=== PATIENT | male | born 1945 ===

== ENCOUNTER 2019-06-19 04:51 | Inpatient (IN) ==
[2019-06-19] MEDS ORDERED: SODIUM CHLORIDE 0.9% 1,000 ML IV PRN (06:15)
[2019-06-19] MEDS ORDERED: ALBUTEROL 2.5 MG/3 ML NEB RESP TX PRN (06:16)
[2019-06-19] MEDS ORDERED: ONDANSETRON 4 MG/2 ML VIAL IV PRN (06:16)
[2019-06-19] MEDS ORDERED: ACETAMINOPHEN 325 MG TABLET PO PRN (06:16)
[2019-06-19 06:53] LABS: INR 1.1; PT Patient Result 12.1 SECS (9.6-12.2); Partial Thromboplastin Time 28.4 SECS (20.8-36.0)
[2019-06-19] MEDS ORDERED: hydrALAZINE 20 MG/1 ML VIAL IV PRN (07:04)
[2019-06-19 07:08] LABS: Eosinophils # 0.2 10*3/uL (0.0-0.87); Eosinophils % 5.3 % (0.00-10.9); Immature Granulocytes % 0.6 %; Immature Granulocytes Absolute 0.02 #; Lymphocytes # 1.5 10*3/uL (1.4-4.0); Lymphocytes % 47.2 % (21.2-54.2); Mean Corpuscular HGB Conc 35.7 GM/DL (32-36); Mean Corpuscular Volume 125.2 FL (87-102); Monocytes % 2.5 % (1.7-12.7); NRBC # 0.02 10*3/uL; Neutrophils % 44.4 % (38.7-73.9); Platelet Count 49 T/CUMM (130-400); Red Blood Count 1.03 MC/CUMM (3.8-5.5); Red Cell Distribution Width 14.3 % (9.3-17.3); White Blood Count 3.2 T/CUMM (4-12)
[2019-06-19 07:09] LABS: Hemoglobin 4.6 GM/DL (14.0-18.0)
[2019-06-19 07:10] LABS: Hematocrit 12.9 VOL% (42.0-52.0)
[2019-06-19 07:12] LABS: Albumin 2.8 G/DL (3.4-5.0); Total Protein 6.3 G/DL (6.4-8.3)
[2019-06-19 07:13] LABS: % Iron Saturation 97.8 % (18-50); Ferritin 371.7 ng/ml (26-388)
[2019-06-19 07:25] LABS: Eosinophils 7 % (0-10); Lymphocytes 41 % (20-55); Platelet Estimate Decreased; Segmented Neutrophils 52 % (50-85); Total Cells Counted 100
[2019-06-19 07:26] LABS: Anisocytosis 2+; Macrocytosis 2+; Poikilocytosis Slight
[2019-06-19 07:27] LABS: Atypical Lymphocytes Few; Hypersegmented Neutrophil Few; Tear Drop Cells Few
[2019-06-19 07:46] LABS: Sedimentation Rate-Westergren 149 MM/HR (0-20)
[2019-06-19 08:15] LABS: Folate 16.8 NG/ML (5.4-24.0); Vitamin B12 56 PG/ML (211-911)
[2019-06-19] MEDS: CYANOCOBALAMIN 1000 MCG/1 ML VIAL IM SCH (09:01)
[2019-06-19 09:25] LABS: Hemoglobin A1 (Alkaline) 96.5 % (96.5-98.5); Hemoglobin A2 (Alkaline) 3.5 % (1.5-3.5)
[2019-06-19] MEDS ORDERED: TUBERCULIN SKIN TEST 0.1 ML SYRINGE INTRADERM ONE ×2 (11:53→17:30)
[2019-06-19] MEDS ORDERED: CYANOCOBALAMIN 1000 MCG/1 ML VIAL IM ONE (18:00)
[2019-06-19 20:04] LABS: Hematocrit 25.3 VOL% (42.0-52.0)
[2019-06-19 20:09] LABS: Hemoglobin 8.8 GM/DL (14.0-18.0)
[2019-06-19] MEDS: amLODIPine 5 MG TABLET PO SCH (20:46)
[2019-06-20 05:48] LABS: Calcium 7.7 MG/DL (8.5-10.1); Osmolality,Calculated 294.6 MOS/KG (273-304)
[2019-06-20 06:00] LABS: Eosinophils # 0.2 10*3/uL (0.0-0.87); Eosinophils % 4.4 % (0.00-10.9); Hematocrit 26.1 VOL% (42.0-52.0); Hemoglobin 9.2 GM/DL (14.0-18.0); Immature Granulocytes % 0.8 %; Immature Granulocytes Absolute 0.03 #; Lymphocytes # 1.9 10*3/uL (1.4-4.0); Lymphocytes % 49.6 % (21.2-54.2); Mean Corpuscular HGB Conc 35.2 GM/DL (32-36); Mean Corpuscular Volume 97.8 FL (87-102); Mean Platelet Volume 11.1 FL (9.6-12.0); Monocytes % 3.6 % (1.7-12.7); Neutrophils % 41.6 % (38.7-73.9); Platelet Count 40 T/CUMM (130-400); Red Blood Count 2.67 MC/CUMM (3.8-5.5); Red Cell Distribution Width 24.9 % (9.3-17.3); White Blood Count 3.9 T/CUMM (4-12)
[2019-06-20 06:01] LABS: Ovalocytes Slight; Total Protein 5.9 G/DL (6.4-8.3)
[2019-06-20 06:02] LABS: Hypochromasia 1+; Platelet Estimate Decreased
[2019-06-20 07:59] LABS: Total Protein (Chem) 5.9 G/DL (6.4-8.3)
[2019-06-20] MEDS: CYANOCOBALAMIN 1000 MCG/1 ML VIAL IM SCH (09:04)
[2019-06-20] MEDS: amLODIPine 5 MG TABLET PO SCH ×2 (09:04→20:17)
[2019-06-20] MEDS: DOCUSATE SODIUM 100 MG CAPSULE PO PRN (09:04)
[2019-06-20] MEDS: FOLIC ACID 1 MG TABLET PO SCH (09:04)
[2019-06-20 09:18] LABS: Albumin (SPE) 3.5 G/DL (3.2-5.3); Albumin (SPE) Rel % 59.7 %; Alpha 1 (SPE) 0.2 G/DL (0.1-0.4); Alpha 1 (SPE) Rel % 2.7 %; Alpha 2 (SPE) 0.4 G/DL (0.4-1.0); Alpha 2 (SPE) Rel % 6.6 %; Beta (SPE) 0.4 G/DL (0.5-1.1); Gamma (SPE) 1.4 G/DL (0.7-1.7)
[2019-06-20 10:08] LABS: Immuno Free Light Chain Kappa 10.59 MG/DL (0.33-1.94); Immuno Free Light Chain Lambda 8.28 MG/DL (0.57-2.63); Immuno Free Light Chain Ratio 1.28 MG/DL (0.26-1.65)
[2019-06-21 05:17] LABS: Basophils % 0.2 % (0.0-0.8); Eosinophils # 0.2 10*3/uL (0.0-0.87); Eosinophils % 1.8 % (0.00-10.9); Hematocrit 30.9 VOL% (42.0-52.0); Hemoglobin 10.7 GM/DL (14.0-18.0); Immature Granulocytes % 1.7 %; Immature Granulocytes Absolute 0.14 #; Lymphocytes # 3.4 10*3/uL (1.4-4.0); Lymphocytes % 40.6 % (21.2-54.2); Mean Corpuscular HGB Conc 34.6 GM/DL (32-36); Mean Corpuscular Volume 100.3 FL (87-102); Mean Platelet Volume 13.4 FL (9.6-12.0); Monocytes % 2.9 % (1.7-12.7); NRBC # 0.02 10*3/uL; Neutrophils % 52.8 % (38.7-73.9); Red Blood Count 3.08 MC/CUMM (3.8-5.5); Red Cell Distribution Width 24.2 % (9.3-17.3); White Blood Count 8.3 T/CUMM (4-12)
[2019-06-21 05:40] LABS: Platelet Count 38 T/CUMM (130-400)
[2019-06-21 05:47] LABS: Calcium 7.9 MG/DL (8.5-10.1); Osmolality,Calculated 286.1 MOS/KG (273-304)
[2019-06-21 06:12] LABS: Anisocytosis 1+; Macrocytosis 1+; Ovalocytes 1+; Platelet Estimate Decreased
[2019-06-21] MEDS ORDERED: FUROSEMIDE 100 MG/10 ML VIAL ONE (07:46)
[2019-06-21] MEDS ORDERED: PROPOFOL 1,000 MG/100 ML BOTTLE IV ONE (08:02)
[2019-06-21] MEDS: PROPOFOL 1,000 MG/100 ML BOTTLE IV SCH (08:05)
[2019-06-21] MEDS ORDERED: ETOMIDATE 40 MG/20 ML VIAL IV ONE (08:20)
[2019-06-21] MEDS ORDERED: SUCCINYLCHOLINE 200 MG/10 ML VIAL ONE (08:20)
[2019-06-21 08:53] LABS: Calcium 7.3 MG/DL (8.5-10.1); Osmolality,Calculated 291.8 MOS/KG (273-304)
[2019-06-21 08:57] LABS: ABG Base Excess -2.5 MMOL/L (-2.5-2.5); ABG HCO3 22.3 MMOL/L (20-26); ABG Oxygen Saturation 99.5 % (95-100); ABG PCO2 42.1 MM HG (35-48); ABG PH 7.346 (7.35-7.45); Allen Test Positive; Pt O2 Delivery Device Ventilator
[2019-06-21] MEDS: FOLIC ACID 1 MG TABLET PO SCH (11:35)
[2019-06-21] MEDS: amLODIPine 5 MG TABLET PO SCH ×2 (11:35→20:59)
[2019-06-21] MEDS: CYANOCOBALAMIN 1000 MCG/1 ML VIAL IM SCH (11:36)
[2019-06-21] MEDS: AMPICILLIN/SULBACTAM 3,000 MG in SODIUM CHLORIDE 0.9% 100 ML IV SCH ×3 (12:00→22:03)
[2019-06-22] MEDS: AMPICILLIN/SULBACTAM 3,000 MG in SODIUM CHLORIDE 0.9% 100 ML IV SCH ×4 (03:22→21:06)
[2019-06-22 04:36] LABS: ABG Base Excess 0.6 MMOL/L (-2.5-2.5); ABG Oxygen Saturation 98.8 % (95-100); ABG PCO2 34.1 MM HG (35-48); ABG PH 7.456 (7.35-7.45); ABG TCO2 21.3 MMOL/L (23-27); Allen Test Positive; Pt O2 Delivery Device Ventilator
[2019-06-22 06:19] LABS: Basophils % 0.4 % (0.0-0.8); Hematocrit 30.8 VOL% (42.0-52.0); Hemoglobin 10.2 GM/DL (14.0-18.0); Immature Granulocytes % 1.9 %; Immature Granulocytes Absolute 0.15 #; Lymphocytes # 0.8 10*3/uL (1.4-4.0); Lymphocytes % 10.3 % (21.2-54.2); Mean Corpuscular HGB Conc 33.1 GM/DL (32-36); Mean Corpuscular Volume 105.1 FL (87-102); Mean Platelet Volume 12.8 FL (9.6-12.0); Monocytes % 10.4 % (1.7-12.7); NRBC # 0.02 10*3/uL; Red Blood Count 2.93 MC/CUMM (3.8-5.5); Red Cell Distribution Width 24.4 % (9.3-17.3); White Blood Count 7.9 T/CUMM (4-12)
[2019-06-22 06:25] LABS: Platelet Count 23 T/CUMM (130-400)
[2019-06-22 06:44] LABS: Calcium 7.4 MG/DL (8.5-10.1); Osmolality,Calculated 294.6 MOS/KG (273-304)
[2019-06-22 07:31] LABS: Anisocytosis 2+; Atypical Lymphocytes Few; Band Neutrophils 3 % (0-10); Hypersegmented Neutrophil Few; Lymphocytes 18 % (20-55); Macrocytosis 1+; Platelet Estimate Decreased; Segmented Neutrophils 76 % (50-85); Total Cells Counted 100
[2019-06-22] MEDS: CYANOCOBALAMIN 1000 MCG/1 ML VIAL IM SCH (08:23)
[2019-06-22] MEDS: FOLIC ACID 1 MG TABLET PO SCH (08:23)
[2019-06-22] MEDS: PROPOFOL 1,000 MG/100 ML BOTTLE IV SCH (08:24)
[2019-06-22] MEDS: amLODIPine 5 MG TABLET PO SCH ×2 (08:24→20:40)
[2019-06-22] MEDS: PANTOPRAZOLE 40 MG VIAL IV SCH (13:48)
[2019-06-22] MEDS: SODIUM CHLORIDE 0.9% 1,000 ML IV SCH (13:48)
[2019-06-22] MEDS ORDERED: methylPREDNISolone SOD SUC 125 MG/2 ML VIAL IV ONE (18:46)
[2019-06-23] MEDS: SODIUM CHLORIDE 0.9% 1,000 ML IV SCH (04:16)
[2019-06-23] MEDS: AMPICILLIN/SULBACTAM 3,000 MG in SODIUM CHLORIDE 0.9% 100 ML IV SCH ×4 (04:20→21:30)
[2019-06-23] MEDS ORDERED: SODIUM CHLORIDE 0.9% 1,000 ML IV SCH (04:30)
[2019-06-23] MEDS ORDERED: SODIUM CHLORIDE 0.9% 500 ML IV ONE (04:30)
[2019-06-23 06:08] LABS: Basophils % 0.1 % (0.0-0.8); Hemoglobin 8.5 GM/DL (14.0-18.0); Immature Granulocytes % 1.5 %; Immature Granulocytes Absolute 0.23 #; Lymphocytes # 0.7 10*3/uL (1.4-4.0); Lymphocytes % 4.5 % (21.2-54.2); Mean Corpuscular Volume 102.9 FL (87-102); Monocytes % 2.4 % (1.7-12.7); Neutrophils % 91.5 % (38.7-73.9); Red Blood Count 2.43 MC/CUMM (3.8-5.5); Red Cell Distribution Width 23.9 % (9.3-17.3)
[2019-06-23 06:12] LABS: Platelet Count 31 T/CUMM (130-400)
[2019-06-23 06:23] LABS: INR 1.3; PT Patient Result 13.9 SECS (9.6-12.2)
[2019-06-23 06:32] LABS: Calcium 7.2 MG/DL (8.5-10.1); Osmolality,Calculated 300.8 MOS/KG (273-304)
[2019-06-23 06:37] LABS: ABG Base Excess -3.1 MMOL/L (-2.5-2.5); ABG Oxygen Saturation 98.2 % (95-100); ABG PCO2 29.6 MM HG (35-48); ABG PH 7.448 (7.35-7.45); ABG PO2 227.6 MM HG (80-95); ABG TCO2 20.9 MMOL/L (23-27); Allen Test Positive; Pt O2 Delivery Device Ventilator
[2019-06-23 06:41] LABS: Anisocytosis 1+; Hypochromasia 1+; Lymphocytes 5 % (20-55); Macrocytosis 1+; Microcytosis 1+; Ovalocytes 1+; Segmented Neutrophils 93 % (50-85); Total Cells Counted 100
[2019-06-23 06:42] LABS: Platelet Estimate Decreased
[2019-06-23] MEDS: FOLIC ACID 1 MG TABLET PO SCH (08:22)
[2019-06-23] MEDS: methylPREDNISolone SOD SUC 40 MG/1 ML VIAL IV SCH ×2 (08:22→22:20)
[2019-06-23] MEDS: PANTOPRAZOLE 40 MG VIAL IV SCH (08:22)
[2019-06-23] MEDS: amLODIPine 5 MG TABLET PO SCH ×2 (08:23→21:42)
[2019-06-23] MEDS: CYANOCOBALAMIN 1000 MCG/1 ML VIAL IM SCH (08:23)
[2019-06-23] MEDS: PROPOFOL 1,000 MG/100 ML BOTTLE IV SCH (10:21)
[2019-06-23 14:20] LABS: Apearance,Urine Slightly Hazy (Clear); Bacteria,Urine Occasional /HPF (Few); Bilirubin,Urine Negative (Negative); Blood, Urine Small mg/dL (Negative); Glucose,Urine (UA) Negative (Negative); Hyaline Casts,Urine 17 /LPF (0-3); Ketones,Urine 5 mg/dL (Negative); Mucus,Urine Occasional /LPF (Occasional); Nitrite,Urine Negative (Negative); Protein,Urine 30 MG/DL; RBC,Urine 6 /HPF (0-4); Squamous Epithelial Cell,Urine Occasional /HPF (0-10); Urine Color Amber (Yellow); Urine Specific Gravity 1.027 (1.001-1.035); WBC,Urine 15 /HPF (0-6)
[2019-06-23] MEDS: LACTATED RINGERS 1,000 ML IV SCH ×2 (15:07→22:21)
[2019-06-23] MEDS: hydrALAZINE 25 MG TABLET PO SCH (21:42)
[2019-06-24] MEDS: PROPOFOL 1,000 MG/100 ML BOTTLE IV SCH ×2 (01:47→10:32)
[2019-06-24] MEDS: AMPICILLIN/SULBACTAM 3,000 MG in SODIUM CHLORIDE 0.9% 100 ML IV SCH ×2 (03:08→10:39)
[2019-06-24] MEDS: LACTATED RINGERS 1,000 ML IV SCH ×2 (04:45→17:11)
[2019-06-24 05:07] LABS: ABG Base Excess -3.5 MMOL/L (-2.5-2.5); ABG HCO3 19.8 MMOL/L (20-26); ABG PCO2 29.1 MM HG (35-48); ABG PH 7.451 (7.35-7.45); ABG PO2 145.7 MM HG (80-95); ABG TCO2 20.7 MMOL/L (23-27); Allen Test Positive; Pt O2 Delivery Device Ventilator
[2019-06-24 06:38] LABS: Basophils % 0.1 % (0.0-0.8); Hematocrit 25.9 VOL% (42.0-52.0); Hemoglobin 8.7 GM/DL (14.0-18.0); Immature Granulocytes % 1.3 %; Immature Granulocytes Absolute 0.21 #; Lymphocytes # 0.6 10*3/uL (1.4-4.0); Lymphocytes % 3.4 % (21.2-54.2); Mean Corpuscular HGB Conc 33.6 GM/DL (32-36); Mean Corpuscular Volume 102.4 FL (87-102); Mean Platelet Volume 14.1 FL (9.6-12.0); Monocytes % 3.5 % (1.7-12.7); Neutrophils % 91.7 % (38.7-73.9); Platelet Count 74 T/CUMM (130-400); Red Blood Count 2.53 MC/CUMM (3.8-5.5); Red Cell Distribution Width 23.8 % (9.3-17.3); White Blood Count 16.6 T/CUMM (4-12)
[2019-06-24 07:04] LABS: Calcium 7.5 MG/DL (8.5-10.1); Osmolality,Calculated 311.7 MOS/KG (273-304)
[2019-06-24 07:05] LABS: Band Neutrophils 1 % (0-10); Hypochromasia 1+; Lymphocytes 2 % (20-55); Microcytosis Slight; Ovalocytes Slight; Platelet Estimate Decreased; Segmented Neutrophils 94 % (50-85); Total Cells Counted 100
[2019-06-24] MEDS: CYANOCOBALAMIN 1000 MCG/1 ML VIAL IM SCH (08:22)
[2019-06-24] MEDS: PANTOPRAZOLE 40 MG VIAL IV SCH (08:22)
[2019-06-24] MEDS: methylPREDNISolone SOD SUC 40 MG/1 ML VIAL IV SCH ×2 (08:22→21:52)
[2019-06-24] MEDS: FOLIC ACID 1 MG TABLET PO SCH (08:22)
[2019-06-24] MEDS: hydrALAZINE 25 MG TABLET PO SCH (08:22)
[2019-06-24] MEDS: amLODIPine 5 MG TABLET PO SCH ×3 (08:22→21:54)
[2019-06-24] MEDS ORDERED: FUROSEMIDE 40 MG/4 ML VIAL IV ONE (09:59)
[2019-06-24] MEDS: MEROPENEM 500 MG in SODIUM CHLORIDE 0.9% 100 ML IV SCH (12:27)
[2019-06-24 13:18] LABS: Allen Test Positive; Pt O2 Delivery Device Ventilator
[2019-06-24 13:19] LABS: ABG Base Excess -3.3 MMOL/L (-2.5-2.5); ABG HCO3 21.7 MMOL/L (20-26); ABG Oxygen Saturation 99.1 % (95-100); ABG PCO2 31.1 MM HG (35-48); ABG PH 7.424 (7.35-7.45); ABG TCO2 18.7 MMOL/L (23-27)
[2019-06-24] MEDS: hydrALAZINE 10 MG TABLET PO SCH ×2 (16:08→21:53)
[2019-06-24] MEDS: DOCUSATE SODIUM 100 MG CAPSULE PO PRN (21:52)
[2019-06-25] MEDS: MEROPENEM 500 MG in SODIUM CHLORIDE 0.9% 100 ML IV SCH ×2 (00:22→13:05)
[2019-06-25 04:21] LABS: Basophils % 0.1 % (0.0-0.8); Hematocrit 27.5 VOL% (42.0-52.0); Hemoglobin 9.2 GM/DL (14.0-18.0); Immature Granulocytes % 1.2 %; Immature Granulocytes Absolute 0.23 #; Lymphocytes # 0.6 10*3/uL (1.4-4.0); Lymphocytes % 3.2 % (21.2-54.2); Mean Corpuscular HGB Conc 33.5 GM/DL (32-36); Mean Corpuscular Volume 102.6 FL (87-102); Monocytes % 2.7 % (1.7-12.7); NRBC # 0.02 10*3/uL; Neutrophils % 92.8 % (38.7-73.9); Platelet Count 138 T/CUMM (130-400); Red Blood Count 2.68 MC/CUMM (3.8-5.5); Red Cell Distribution Width 23.5 % (9.3-17.3); White Blood Count 19.9 T/CUMM (4-12)
[2019-06-25 04:47] LABS: Lymphocytes 6 % (20-55); Segmented Neutrophils 92 % (50-85); Total Cells Counted 100
[2019-06-25 04:48] LABS: Anisocytosis 2+; Hypersegmented Neutrophil Few; Macrocytosis 1+; Platelet Estimate Normal
[2019-06-25 04:49] LABS: Ovalocytes Slight; Polychromasia Slight; Stomatocytes Slight; Target Cells Slight
[2019-06-25 04:52] LABS: Calcium 7.9 MG/DL (8.5-10.1); Osmolality,Calculated 321.3 MOS/KG (273-304)
[2019-06-25] MEDS: methylPREDNISolone SOD SUC 40 MG/1 ML VIAL IV SCH ×2 (07:18→21:24)
[2019-06-25] MEDS: amLODIPine 5 MG TABLET PO SCH ×2 (10:58→21:22)
[2019-06-25] MEDS: hydrALAZINE 10 MG TABLET PO SCH ×3 (10:58→21:22)
[2019-06-25] MEDS: PANTOPRAZOLE 40 MG VIAL IV SCH (10:58)
[2019-06-25] MEDS: FOLIC ACID 1 MG TABLET PO SCH (10:58)
[2019-06-25] MEDS: CYANOCOBALAMIN 1000 MCG/1 ML VIAL IM SCH (10:59)
[2019-06-25] MEDS: DOCUSATE SODIUM 100 MG CAPSULE PO PRN (18:27)
[2019-06-25] MEDS: ENOXAPARIN 30 MG/0.3 ML SYRINGE SUBCUT SCH (21:26)
[2019-06-26] MEDS: MEROPENEM 500 MG in SODIUM CHLORIDE 0.9% 100 ML IV SCH ×2 (00:18→18:07)
[2019-06-26 05:09] LABS: Calcium 8.1 MG/DL (8.5-10.1); Osmolality,Calculated 323.3 MOS/KG (273-304)
[2019-06-26] MEDS: hydrALAZINE 10 MG TABLET PO SCH ×3 (09:07→20:39)
[2019-06-26] MEDS: DOCUSATE SODIUM 100 MG CAPSULE PO PRN (09:07)
[2019-06-26] MEDS: methylPREDNISolone SOD SUC 40 MG/1 ML VIAL IV SCH (09:07)
[2019-06-26] MEDS: PANTOPRAZOLE 40 MG VIAL IV SCH (09:07)
[2019-06-26] MEDS: amLODIPine 5 MG TABLET PO SCH ×2 (09:07→20:39)
[2019-06-26] MEDS: CYANOCOBALAMIN 1000 MCG/1 ML VIAL IM SCH (09:07)
[2019-06-26] MEDS: FOLIC ACID 1 MG TABLET PO SCH (09:07)
[2019-06-26] MEDS ORDERED: POLYETHYLENE GLYCOL POWDER 17 GM PACK PO PRN (17:10)
[2019-06-26] MEDS: ENOXAPARIN 30 MG/0.3 ML SYRINGE SUBCUT SCH (20:39)
[2019-06-27] MEDS: MEROPENEM 500 MG in SODIUM CHLORIDE 0.9% 100 ML IV SCH (00:42)
[2019-06-27 05:49] LABS: Basophils % 0.1 % (0.0-0.8); Eosinophils # 0.1 10*3/uL (0.0-0.87); Eosinophils % 0.4 % (0.00-10.9); Hematocrit 27.1 VOL% (42.0-52.0); Hemoglobin 8.9 GM/DL (14.0-18.0); Immature Granulocytes Absolute 0.42 #; Lymphocytes # 1.6 10*3/uL (1.4-4.0); Lymphocytes % 11.1 % (21.2-54.2); Mean Corpuscular HGB Conc 32.8 GM/DL (32-36); Mean Corpuscular Volume 101.9 FL (87-102); Mean Platelet Volume 11.3 FL (9.6-12.0); Monocytes % 14.6 % (1.7-12.7); Neutrophils % 70.8 % (38.7-73.9); Platelet Count 212 T/CUMM (130-400); Red Blood Count 2.66 MC/CUMM (3.8-5.5); Red Cell Distribution Width 22.7 % (9.3-17.3)
[2019-06-27 06:01] LABS: Osmolality,Calculated 310.7 MOS/KG (273-304)
[2019-06-27 06:25] LABS: Hypochromasia 1+; Ovalocytes Slight; Platelet Estimate Adequate
[2019-06-27 07:40] VITALS: BP 150/56
[2019-06-27] MEDS: CYANOCOBALAMIN 1000 MCG/1 ML VIAL IM SCH (09:53)
[2019-06-27] MEDS: hydrALAZINE 10 MG TABLET PO SCH (09:55)
[2019-06-27] MEDS: PANTOPRAZOLE 40 MG VIAL IV SCH (09:56)
[2019-06-27] MEDS: FOLIC ACID 1 MG TABLET PO SCH (09:56)
[2019-06-27] MEDS: amLODIPine 5 MG TABLET PO SCH (09:56)
[2019-07-03] MEDS ORDERED: CYANOCOBALAMIN 1000 MCG/1 ML VIAL IM SCH (09:00)
[2019-08-21] MEDS ORDERED: CYANOCOBALAMIN 1000 MCG/1 ML VIAL IM SCH (09:00)
== END 2019-06-27 11:35 | DRG 811 ==
LOC: SUATTDRO 05:41 → N.ICU 05:41 → N.2E 15:24 → N.ICU 06-21 07:56 → N.2E 06-25 13:54
PROVIDERS: ADMIT Internal Medicine; ATTEND Internal Medicine